=== PATIENT | female | born 1940 | race Caucasian/White ===

== ENCOUNTER 2016-10-14 13:17 | Observation (INO) | payer MEDICARE, BC ==
--- NOTE | ~2016-10-14 | HP ---
History And Physical [facility] [address] [place]. [address] NAME: ESPINOZA CHAKRABORTY : 44 STATUS : DIS Angel PAT#: [id number] AGE: 75 ADM/REG DATE : 10/14/16 MR#: [id number] REPORT SERV DATE: 10/16/16 DICTATED BY: TRICIA FRITZ DATE: 10/14/16 REPORT STATUS : Draft TRANSCRIBED BY: MODL DATE: 10/14/16 DATE OF ADMISSION: 10/14/2016 REASON FOR ADMISSION: Acute urinary retention. HISTORY OF PRESENT ILLNESS: Ms. Chakraborty is a 75-year-old female with history of hypertension who presents to the emergency department today with chief complaint of abdominal pain, which she believed was constipation. Her story began a week ago after having a good appetite, she has felt constipated the following day, unable to eat anything. She had nausea with occasional vomiting, really had virtually nothing over the course of the entire week except for fluids. Urination was also somewhat worse than usual. She has a history of chronic leaking ever since a bladder tack with a sling about 10 years ago. She had actually been in a program recently with some biofeedback, however, her dribbling has gotten somewhat worse and she does not have normal voiding at all. In any event, the belly pain got worse and worse. She had increased abdominal distention, looking like she was "." She came to the emergency department, received a CT of the abdomen, was found to have a massive urinary retention. A Cardenas catheter was placed with relief of her symptoms. Minimal stool was present in her colon. I was asked to admit the patient. REVIEW OF SYSTEMS: Denies any weight loss. Denies any neurological complaints. No history of diabetes. No cardiovascular or pulmonary complaints. Remainder of the review of systems is negative. PAST MEDICAL HISTORY: As mentioned above. History of depression. MEDICATIONS: Hormone patch, her blood pressure medicine and depression medicine, she did not know the names of her drugs. ALLERGIES: THERE ARE NO DRUG ALLERGIES. FAMILY HISTORY: Positive for diabetes. SOCIAL HISTORY: The patient has no tobacco, alcohol, or drugs. She is . PHYSICAL EXAMINATION: VITAL SIGNS: On presentation, blood pressure 110/68, pulse 83, respirations 20, afebrile, and saturating 95%. GENERAL: Awake, alert, and oriented x3, in no apparent distress. HEENT: Pupils are equal and reactive to light. Extraocular movements are intact. No cranial nerve deficits. Moist mucous membranes. Normal oropharynx. Trachea midline. NECK: Revealed no jugular venous distention, carotid bruits, lymphadenopathy, or goiter. CARDIAC: Regular rate and rhythm. No murmurs, gallops, or rubs. LUNGS: Clear to auscultation bilaterally. Good excursion. ABDOMEN: Soft, nondistended, and nontender. Bowel sounds normoactive. EXTREMITIES: No cyanosis, clubbing, or edema. Good pulses and capillary refill. NEUROLOGIC: She has normal sensory and motor function in all four extremities. History And Physical [address] [place]. [address] NAME: ESPINOZA CHAKRABORTY : 44 STATUS : DIS Angel PAT#: [id number] AGE: 75 ADM/REG DATE : 10/14/16 MR#: [id number] REPORT SERV DATE: 10/16/16 DICTATED BY: TRICIA FRITZ DATE: 10/14/16 REPORT STATUS : Draft TRANSCRIBED BY: KAYLAN DATE: 10/14/16 SKIN: Warm and dry. PSYCHIATRIC: She is appropriate. LABORATORY EVALUATION: Sodium 140, potassium 3.8, chloride 104, bicarb 26, BUN 20, creatinine 1.1, and glucose 146. White count 11,000, H and H 13/38, and platelets 290. Urinalysis negative. CT of the abdomen showed 3 liters in the bladder, underlying acute urinary retention without neuropathy, fecal impaction, nor medications. I am concerned about the possibility of bladder outlet obstruction due to a bladder tumor or possibly from scar tissue from her previous bladder tack. Cardenas catheter has relieved the symptoms, mild renal insufficiency with the creatinine going from 0.6 to 1.1. We anticipate it will improve, although fluids will be given overnight. We will consult Urology for possible cystoscopy versus further imaging. Differential diagnosis also consists of bladder failure from chronic urinary retention in which case long-term decompression therapy will be necessary. 1. Hypertension. Blood pressure currently satisfactory. 2. History of depression. Continue present medications. JOHN/KAYLAN Tricia Fritz M.D. / [id number] CC: Daria Weeks M.D. Rena Ann Azar, M.D.
--- NOTE | ~2016-10-14 | DS ---
Discharge Summary [facility] [address] [place]. [address] NAME: ESPINOZA BROWNING : 44 STATUS : DIS Angel PAT#: [id number] AGE: 75 ADM/REG DATE : 10/14/16 MR#: [id number] REPORT SERV DATE: 10/16/16 DICTATED BY: TRICIA FRITZ DATE: 10/15/16 REPORT STATUS : Draft TRANSCRIBED BY: MODL DATE: 10/15/16 ADMISSION DATE: 10/14/2016 DISCHARGE DATE: 10/15/2016 PRINCIPAL DIAGNOSIS: Acute urinary retention. SECONDARY DIAGNOSES: Acute kidney injury, hypertension, and history of depression. HISTORY PRESENT ILLNESS: Please see my dictation 10/14/2016. 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 There is also a concern, however, that there was an obstruction to her bladder. Dr. Cardenas saw her in consultation and scheduled her to be seen as an outpatient for cystoscopy but was set up with a leg bag to go home on 10/15/2016. 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 She will follow up with Dr. Doug Laguerre, at 1-2 weeks or [address] and [address] Cardenas this coming week. JOHN/KAYLAN Tricia Fritz M.D. / [id number] CC: Daria Weeks M.D. Rena Ann Azar, M.D. Patrick Foley, M.D.
--- NOTE | ~2016-10-14 | CN ---
Consultation Report [facility] [address] [place]. [address] NAME: ESPINOZA CHAKRABORTY : 44 STATUS : DIS Angel PAT#: [id number] AGE: 75 ADM/REG DATE : 10/14/16 MR#: [id number] REPORT SERV DATE: 10/15/16 DICTATED BY: ALL BARAKAT DATE: 10/15/16 REPORT STATUS : Draft TRANSCRIBED BY: MODL DATE: 10/15/16 CONSULTATION DATE OF CONSULTATION: 10/15/2016 This is a consultation for the Hospitalist Service. REASON FOR CONSULTATION: Urinary retention. IMPRESSION: 1. Urinary retention, longstanding bladder outlet obstruction culminating in retention yesterday. 2. Previous urethral sling by Dr. Jorge Harding. 3. Acute kidney injury, that has resolved with a Barakat catheter. PLAN: Her serum creatinine has normalized already. She is pain-free. DC home with the Barakat catheter. Follow up in my office for cystoscopy and evaluation of bladder outlet obstruction. DISCUSSION: Ms. Chakraborty is a 75-year-old white female who had a pelvic floor reconstruction including a mid urethral sling (porcine mesh) 10 years ago. Since then, she has had both urinary frequency and urinary incontinence. She has had several treatments for this from other gynecologists. There has been no improvement in her symptoms. She developed abdominal pain, which she felt was distention of a pelvic mass. She came in to the hospital, had a CT scan showing a largely distended bladder with bilateral hydronephrosis. A Barakat catheter was placed and she has been relieved. Her serum creatinine when she came to the hospital was approximately 1.2 and it has decreased to 0.7 already. She has had a mild kaliuresis with it as well. PAST MEDICAL HISTORY: Significant for anxiety. PAST SURGICAL HISTORY: As stated. MEDICATIONS: Include Zoloft and hormones. SOCIAL HISTORY: She denies drug, alcohol, or tobacco abuse. REVIEW OF SYSTEMS: Negative for diabetes. PHYSICAL EXAMINATION: GENERAL: Shows a well-developed, well-nourished, pleasant white female, in no acute distress. ABDOMEN: Soft and nontender. Flanks are nontender to palpation. A Barakat catheter is draining her bladder. Urine is clear. Consultation Report [facility] [address] [place]. [address] NAME: ESPINOZA CHAKRABORTY : 44 STATUS : DIS Angel PAT#: [id number] AGE: 75 ADM/REG DATE : 10/14/16 MR#: [id number] REPORT SERV DATE: 10/15/16 DICTATED BY: ALL BARAKAT DATE: 10/15/16 REPORT STATUS : Draft TRANSCRIBED BY: MODL DATE: 10/15/16 EXTREMITIES: Lower extremities, no deformities. STUDIES REVIEWED: I reviewed the CT scan and concur with the radiologist's report. PF/KAYLAN All Barakat M.D. / [id number] CC: Daria Weeks M.D.
[~2016-10-14 13:17] MED LIST: ALLEGRA180 PO; ASAB PO; CLIMARA0.1 MG TD; LIPITOR10 PO; PLAVIX PO; ZOL100 PO
[2016-10-14 13:47] LABS: BASOPHILS 0.3 %; BASOPHILS ABSOLUTE 0.03 10/3/uL (0.0-0.16); EOSINOPHILS 0.3 %; EOSINOPHILS ABSOLUTE 0.03 10/3/uL (0.0-0.53); HEMOGLOBIN 12.5 g/dL (12.0-16.0); IMMATURE GRANULOCYTES 0.3 %; IMMATURE GRANULOCYTES ABSOLUTE 0.03 10/3/uL (0.0-0.11); LYMPHOCYTES ABSOLUTE 0.87 10/3/uL (0.67-4.30); MEAN CORPUS HGB CONC 33.3 g/dL (32.0-36.0); MEAN CORPUSCULAR HEMOGLOB 29.8 pg (26.0-34.0); MEAN CORPUSCULAR VOLUME 89.5 fL (80-100); MEAN PLATELET VOLUME 9.5 fL (9.2-13.0); MONOCYTES ABSOLUTE 0.54 10/3/uL (0.21-1.20); NEUTROPHILS 86.1 %; NEUTROPHILS ABSOLUTE 9.31 10/3/uL (2.02-8.40); PLATELET COUNT 290 10/3/uL (150-400); RBC DISTRIBUTION WIDTH 13.8 % (12.0-16.0); RED CELL COUNT 4.19 10/6/uL (4.0-5.6)
[2016-10-14 13:48] LABS: ER CBC TAT 0 Hrs 09 Mins; HEMATOCRIT 37.5 % (36.0-48.0); MANUAL DIFF NO %; WHITE BLOOD CELLS 10.8 10/3/uL (4.5-10.5)
[2016-10-14 14:01] LABS: A/G RATIO 0.7 (0.7-1.9); ALBUMIN 3.3 G/DL (3.5-5.0); ALKALINE PHOSPHATASE 90 U/L (45-117); BUN (BLOOD UREA NITROGEN) 20 MG/DL (6-23); CALCIUM, SERUM 8.7 MG/DL (8.5-10.4); CHLORIDE, SERUM 104 MMOL/L (96-112); CO2 (CARBON DIOXIDE) 26 MMOL/L (24-34); CREATININE 1.14 MG/DL (0.55-1.02); GFR AFRICAN AMERICAN 55 ML/MIN (>=60); GFR NON AFRICAN AMERICAN 48 ML/MIN (>=60); GLOBULIN 4.6 G/DL (2.5-4.1); GLUCOSE, SERUM 146 MG/DL (60-99); POTASSIUM, SERUM 3.8 MMOL/L (3.5-5.3); SGOT(AST) 10 U/L (5-40); SGPT(ALT) 16 U/L (5-65); SODIUM, SERUM 140 MMOL/L (135-148); TOTAL BILIRUBIN 0.6 MG/DL (0-1.2); TOTAL PROTEIN 7.9 G/DL (6.0-8.5)
[2016-10-14 15:30] LABS: ASCORBIC ACID (UR NOT ORDER) NEG (NEG); BILIRUBIN, URINE NEGATIVE (NEG); ER URINALYSIS TAT 0 Hrs 16 Mins; KETONE, URINE NEGATIVE (NEG); LEUKOCYTE ESTERASE(NOT OR NEG (NEG); NITRITE (URINE) NEG (NEG); WBC (NOT ORDERED) (RFLEX) 3 (0-5)
[2016-10-14] MEDS ORDERED: VIVELLE SY0.05 MG/24 TOP (17:19)
[2016-10-14] MEDS ORDERED: ZOL100 PO (17:21)
[2016-10-14] MEDS ORDERED: CRESTOR PO (17:21)
[2016-10-14] MEDS ORDERED: COREG6 PO (17:22)
[2016-10-14] MEDS ORDERED: REM15 PO (17:22)
[2016-10-14] MEDS ORDERED: ASAB PO (17:23)
[2016-10-14] MEDS ORDERED: VITD PO (17:23)
[2016-10-15 04:29] LABS: BUN (BLOOD UREA NITROGEN) 13 MG/DL (6-23); CALCIUM, SERUM 8.3 MG/DL (8.5-10.4); CHLORIDE, SERUM 108 MMOL/L (96-112); CO2 (CARBON DIOXIDE) 28 MMOL/L (24-34); CREATININE 0.67 MG/DL (0.55-1.02); GFR AFRICAN AMERICAN 101 ML/MIN (>=60); GFR NON AFRICAN AMERICAN 87 ML/MIN (>=60); GLUCOSE, SERUM 97 MG/DL (60-99); POTASSIUM, SERUM 3.2 MMOL/L (3.5-5.3); SODIUM, SERUM 144 MMOL/L (135-148)
[2016-10-15] MEDS ORDERED: CRESTOR20 MG PO (12:46)
== END 2016-10-15 15:29 | disposition home or self-care (01) ==
LOC: ER 13:17 → CDU1 17:53
PROVIDERS: Emergency Medicine; Internal Medicine
PROC: 0T9B70Z Drainage of Bladder with Drainage Device, Via Natural or Artificial Opening (ICD-10-PCS; principal; 2016-10-14)
DX: R33.9 Retention of urine, unspecified (principal); I10 Essential (primary) hypertension; F32.9 Major depressive disorder, single episode, unspecified; N17.9 Acute kidney failure, unspecified; F41.9 Anxiety disorder, unspecified
CPT/HCPCS: 74176; 80048; 80053; 81001; 83690; 83735; 84132; 85025; 96372; 96374; 99285; A9270-GY; G0378; J2405